=== PATIENT | female | born 1985 ===

== ENCOUNTER → 2017-07-02 | Outpatient (REF) | payer SELFPAY ==
[2017-07-02 14:48] LABS: CHLAMYDIA DNA AMPLIFICATION NEGATIVE (NEGATIVE); GC DNA AMPLIFICATION NEGATIVE (NEGATIVE)
== END ==
LOC: M LAB REF 12:19
DX: N39.0 Urinary tract infection, site not specified (principal)
CPT/HCPCS: 87186